=== PATIENT | female | born 1990 | race Caucasian/White ===

== ENCOUNTER 2018-03-13 19:01 | Emergency (ER) | payer OTHER ==
[2018-03-13] MEDS: ACETAMINOPHEN 325 MG TAB PO (19:49)
[2018-03-13] MEDS: IBUPROFEN 600 MG TAB PO (20:28)
== END 2018-03-13 21:08 | disposition home or self-care (01) ==
LOC: FTE 21:08
DX: J02.9 Acute pharyngitis, unspecified (principal)
CPT/HCPCS: 81025; 99283